=== PATIENT | male | born 1995 | race Caucasian/White ===

== ENCOUNTER → 2018-02-25 | Outpatient (REF) | payer OTHER | LOC: M LAB REF 08:18 | DX: N48.22 Cellulitis of corpus cavernosum and penis (principal) ==

== ENCOUNTER → 2018-08-03 | Outpatient (REF) | payer OTHER | LOC: M LAB REF 13:03 | DX: J02.9 Acute pharyngitis, unspecified (principal) ==

== ENCOUNTER 2021-03-04 11:03 | Emergency (ER) | payer OTHER, SELFPAY ==
[~2021-03-04] VITALS: Ht 172.7 cm; Wt 58.7 kg
[2021-03-04] MEDS ORDERED: BRIM0.2S13 (11:31)
[2021-03-04] MEDS ORDERED: PRED1SUS2 (11:31)
[2021-03-04] MEDS ORDERED: PHENYLEPHRINE 2.5% OPHTH SOL 2ML OU ONE (12:35)
[2021-03-04] MEDS ORDERED: TROPICAMIDE 0.5% OPHTH SOLN 15 ML OU ONE (12:35)
[2021-03-04] MEDS ORDERED: BRIM1OPD OU (13:50)
[2021-03-04] MEDS ORDERED: TIMO0.2529 OU (13:50)
[2021-03-04 14:13] VITALS: BP 110/63
== END 2021-03-04 14:14 | disposition home or self-care (01) ==
LOC: M ED 11:03
DX: H59.89 Other postprocedural complications and disorders of eye and adnexa, not elsewhere classified (principal); H53.9 Unspecified visual disturbance; J45.909 Unspecified asthma, uncomplicated; Z91.010 Allergy to peanuts; Z79.899 Other long term (current) drug therapy

== ENCOUNTER → 2021-10-03 | Outpatient (REF) ==
[~2021-10-03] MED LIST: BRIM0.2S13; BRIM1OPD OU; PRED1SUS2; TIMO0.2529 OU
== END ==
LOC: M LABSMTC 13:16
PROVIDERS: ATTEND Family Medicine
DX: Z11.52 Encounter for screening for COVID-19 (principal); Z20.822 Contact with and (suspected) exposure to COVID-19

== ENCOUNTER → 2022-08-26 | Outpatient (REF) ==
[2022-08-26 15:13] LABS: RSV AMPLIFICATION NEGATIVE (NEGATIVE)
== END ==
LOC: M EMP 13:23
PROVIDERS: ATTEND Family Medicine
DX: Z11.59 Encounter for screening for other viral diseases (principal)

== ENCOUNTER 2023-07-07 14:44 | Emergency (ER) | payer SELFPAY ==
[~2023-07-07] VITALS: Ht 175.3 cm; Wt 61.4 kg
[2023-07-07] MEDS ORDERED: MED REC IN PROGRESS XX SCH (15:15)
[2023-07-07 15:34] LABS: HEMATOCRIT 50.8 % (42.0-52.0); HEMOGLOBIN 17.4 g/dl (13.5-17.5); MEAN CORPUSCULAR HEMOGLOBIN 30.6 pg (27.0-33.0); MEAN CORPUSCULAR HGB CONC 34.3 g/dl (32.0-36.5); MEAN CORPUSCULAR VOLUME 89.3 fl (80.0-96.0); PLATELET COUNT, AUTOMATED 190 10^3/uL (150-450); RED BLOOD COUNT 5.69 10^6/uL (4.30-6.10); WHITE BLOOD COUNT 7.9 10^3/uL (4.0-10.0)
[2023-07-07 15:57] LABS: ETHYL ALCOHOL (ETHANOL) < 0.003 % (0.000-0.010)
[2023-07-07 15:58] LABS: SALICYLATE LEVEL < 3.0 MG/DL (<30)
[2023-07-07 15:59] LABS: ACETAMINOPHEN LEVEL < 2.0 UG/ML (10.0-20.0); ALBUMIN 4.3 G/DL (3.2-5.2); ALKALINE PHOSPHATASE 43 U/L (46-116); ALT/SGPT 22 U/L (7.0-40); AST/SGOT 12 U/L (<34); BILIRUBIN,DIRECT 0.3 MG/DL (<0.4); BLOOD UREA NITROGEN 26 MG/DL (9-23); CALCIUM LEVEL 9.7 MG/DL (8.5-10.1); CARBON DIOXIDE LEVEL 32 MMOL/L (20-31); CHLORIDE LEVEL 107 MMOL/L (98-107); CREATININE FOR GFR 0.94 MG/DL (0.70-1.30); GLOMERULAR FILTRATION RATE > 60.0 (>60); GLUCOSE, FASTING 97 MG/DL (60-100); POTASSIUM SERUM 4.4 MMOL/L (3.5-5.1); SODIUM LEVEL 142 MMOL/L (136-145); TOTAL PROTEIN 7.4 G/DL (5.7-8.2)
[2023-07-07 16:01] LABS: THYROID STIMULATING HORMONE 1.378 uIU/ML (0.55-4.78)
[2023-07-07] MEDS ORDERED: VENTAER INH (16:54)
[2023-07-07] MEDS ORDERED: HOME MED LIST COMPLETE! XX SCH (17:10)
[2023-07-07 17:24] LABS: AMPHETAMINES LEVEL URINE NEGATIVE (NEGATIVE); BARBITURATES URINE NEGATIVE (NEGATIVE); BENZODIAZEPINES URINE NEGATIVE (NEGATIVE); COCAINE METABOLITE URINE NEGATIVE (NEGATIVE); METHADONE URINE NEGATIVE (NEGATIVE); OPIATES URINE NEGATIVE (NEGATIVE); PHENCYCLIDINE URINE NEGATIVE (NEGATIVE)
[2023-07-07 18:00] LABS: CANNABINOIDS URINE POSITIVE (NEGATIVE)
[2023-07-08] MEDS ORDERED: LORazepam 2 MG TAB PO PRN (08:00)
[2023-07-08] MEDS ORDERED: THIAMINE 100 MG TAB PO SCH (09:00)
[2023-07-08] MEDS ORDERED: MULTIVITAMINS/MINERALS THERAP 1 TAB PO SCH (09:00)
[2023-07-08] MEDS ORDERED: FOLIC ACID 1MG TAB PO SCH (09:00)
[2023-07-08 13:50] VITALS: BP 132/75; TEMP 99.1; O2SAT 96
== END 2023-07-08 13:52 | disposition home or self-care (01) ==
LOC: M ED 14:44
DX: F32.A Depression, unspecified (principal); J45.909 Unspecified asthma, uncomplicated

== ENCOUNTER → 2024-06-24 | Outpatient (REF) ==
[~2024-06-24] MED LIST changes: +VENTAER INH
== END ==
LOC: M EMP 15:39
PROVIDERS: ATTEND Family Medicine
DX: Z11.52 Encounter for screening for COVID-19 (principal)

== ENCOUNTER 2025-07-22 23:54 | Emergency (ER) | payer SELFPAY ==
[~2025-07-22] VITALS: Ht 175.3 cm; Wt 60.1 kg
[~2025-07-22 23:54] MED LIST changes: -BRIM1OPD OU; +BRIM5DRO25 OU
[2025-07-23] MEDS ORDERED: LEVALBUTEROL 1.25 MG 0.5ML CONCENTRATE NEB NEB ONE (00:10)
[2025-07-23] MEDS: diphenhydrAMINE 50 MG/ML VIAL IV ONE (00:13)
[2025-07-23] MEDS: FAMOTIDINE 20 MG/2 ML VIAL IVP ONE (00:13)
[2025-07-23] MEDS: NS (Normal Saline) 0.9% 1,000 ML IV ONE (00:20)
[2025-07-23] MEDS: METOPROLOL 5 MG/5 ML VIAL IV STA (00:21)
[2025-07-23] MEDS: ONDANSETRON 4MG/2ML VIAL IV ONE (00:32)
[2025-07-23] MEDS: LEVALBUTEROL 1.25 MG 0.5ML CONCENTRATE NEB NEB ONE (00:36)
[2025-07-23] MEDS ORDERED: PRED20TA PO (00:53)
[2025-07-23] MEDS ORDERED: EPIP0.3I2 IM (00:53)
[2025-07-23] MEDS ORDERED: PEPC1TAB5 PO (00:53)
[2025-07-23] MEDS ORDERED: CETI-24 PO (00:53)
[2025-07-23] MEDS ORDERED: BENA25CA4 PO (00:53)
[2025-07-23 02:30] VITALS: BP 113/59; TEMP 98.2; O2SAT 97
== END 2025-07-23 02:54 | disposition home or self-care (01) ==
LOC: M ED 23:54
DX: T78.09XA Anaphylactic reaction due to other food products, initial encounter (principal); R00.0 Tachycardia, unspecified; I45.10 Unspecified right bundle-branch block; Z91.010 Allergy to peanuts; Z79.51 Long term (current) use of inhaled steroids; Z79.52 Long term (current) use of systemic steroids; Z79.899 Other long term (current) drug therapy
CPT/HCPCS: 93005; 93041; 94640; 94760; 96361; 96374; 96375; 99285; J0616; J1100; J1200; J1308; J2405